=== PATIENT | male | born 1980 | race Caucasian/White ===

== ENCOUNTER 2025-10-19 17:26 | Inpatient (IN) | payer BC ==
[~2025-10-19] VITALS: Ht 180.3 cm; Wt 103.6 kg
[2025-10-19] MEDS: fentaNYL/PF 50MCG/1 ML 2ML syringe ONE (17:39)
[2025-10-19] MEDS: fentaNYL/PF 50MCG/1 ML 2ML syringe IV ONE (17:39)
--- NOTE | 2025-10-19 18:23 | ELECTROCARDIOGRAPH REPORT ---
[facility] Test Date: 2025-10-19 Test Time: 18:21:13 Pat Name: DEANNA FOX Department: [facility]- Patient ID: [id number] Room: Gender: M Customer Supply Coordinator: : 1980 Requested By: YISSEL SIMON Order Number: [id number] Reading MD: Dr. Yissel Simon Measurements Intervals [place] Rate: 81 P: 0 GA: 0 QRS: 90 QRSD: 113 T: 63 QT: 400 QTc: 465 Interpretive Statements Atrial flutter/fibrillation Borderline intraventricular conduction delay Electronically Signed On 10-19-2025 19:19:[address] Yissel Simon Please click the below link to view image of tracing.
[2025-10-19] MEDS: normal saline 1000ml 1,000 ML IV ONE (18:37)
[2025-10-19 18:41] LABS: MEAN PLATELET VOLUME 7.9 FL (7.4-10.4); RED CELL DISTRIBUTION WIDTH 14.6 % (11.5-14.5)
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
[2025-10-19] MEDS: etomidate 2mg/ml inj. IV ONE (18:44)
[2025-10-19 18:49] LABS: CREATININE 1.10 MG/DL (0.60-1.10); TOTAL CARBON DIOXIDE 27.6 MMOL/L (24-32); eCRCL 90 ML/MIN; eGFR 72 ML/MIN
[2025-10-19 18:52] LABS: APTT 22 SECONDS (22-32); INR 1.0 INR
--- NOTE | 2025-10-19 19:24 | RADIOLOGY REPORT ---
EXAM: DI KNEE LIMITED (AP/LAT), DI TIB/FIB 2 VWS REASON FOR EXAM: KNEE PAIN TECHNIQUE: AP and lateral views of the right knee and right tibia and fibula are submitted for review. COMPARISON: None FINDINGS: There is no significant knee effusion. The knee joint spaces are maintained. The AP view of the lower portion of the right tibia and fibula is suboptimal due to patient pain impairing positioning. There is acute fracture of the posterior malleolus of the tibia. There is posterior and lateral dislocation of the talus with respect to the tibial plafond. There is acute oblique fracture through the distal fibular diaphysis. There is severe soft tissue swelling about the ankle. IMPRESSION: Acute fractures of the posterior malleolus of the tibia and the distal fibular diaphysis. Posterolateral dislocation of the talus with respect of the tibial plafond. Severe soft tissue swelling about the ankle.
--- NOTE | 2025-10-19 19:26 | RADIOLOGY REPORT ---
EXAM: DI FOOT, COMPLETE (3VW MIN) REASON FOR EXAM: FOOT PAIN TECHNIQUE: AP, lateral, and oblique views of the right foot are submitted for review. COMPARISON: None FINDINGS: There is acute fracture of the posterior malleolus of the distal tibia. There is oblique acute fracture of the distal fibular diaphysis. There is posterolateral dislocation of the talus with respect to the tibial plafond. There is severe soft tissue swelling about the ankle IMPRESSION: Acute fractures of the posterior malleolus of the tibia and the distal fibular diaphysis. Posterolateral dislocation of the talus with respect to the tibial plafond. Severe soft tissue swelling.
--- NOTE | 2025-10-19 19:41 | RADIOLOGY REPORT ---
CHEST RADIOGRAPH Indication: trauma Technique: Single frontal view of the chest was obtained Comparison: None FINDINGS: Lines and Tubes: None Lungs: No focal consolidation. Eventration of bilateral hemidiaphragm. Pleura: No effusion. No pneumothorax. Cardiomediastinal contours: Unremarkable Bones: No acute osseous abnormality. IMPRESSION: No acute cardiopulmonary disease.
--- NOTE | 2025-10-19 19:43 | RADIOLOGY REPORT ---
EXAM: DI ANKLE,LIMITED (AP/LAT) REASON FOR EXAM: post reduction TECHNIQUE: AP and lateral views of the right ankle are submitted for review. COMPARISON: DI KNEE LIMITED (AP/LAT) on DOS: 10/19/25 FINDINGS: Fine bony and soft tissue details are obscured by overlying splint material. There is acute fracture of the posterior malleolus of the distal tibia. There has been interval reduction of the talar dome with respect to the tibial plafond. There is acute oblique fracture through the distal fibular diaphysis. There is mild residual widening of the ankle mortise medially. IMPRESSION: Interval reduction of the talar dome with respect to the tibial plafond. Mild residual medial ankle mortise widening. Acute fractures of the posterior malleolus of the tibia and oblique distal fibular diaphysis.
[2025-10-19] MEDS: ondansetron/PF 4mg/2ml inj IV ONE (20:35)
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
[2025-10-19] MEDS ORDERED: potassium Cl 20 mEq SR tablet PO PRN ×2 (20:45)
[2025-10-19] MEDS ORDERED: magnesium hydroxide 30ml (MOM) UD suspension PO PRN (20:45)
[2025-10-19] MEDS ORDERED: ondansetron/PF 4mg/2ml inj IV PRN (20:45)
[2025-10-19] MEDS ORDERED: magnesium sulf-water 2g/50mL 50 ML IV PRN (20:45)
[2025-10-19] MEDS ORDERED: HYDROcodone/acetaminophen 5mg/325mg tablet PO PRN (20:45)
[2025-10-19] MEDS ORDERED: potassium Cl 40MEQ/1/2NS 520ml 520 ML IV PRN (20:45)
[2025-10-19] MEDS ORDERED: mag hydrox/Alum hydrox/simeth 30ml oral suspension PO PRN (20:45)
[2025-10-19] MEDS ORDERED: magnesium Cl slow-release 64mg tablet PO PRN (20:45)
[2025-10-19] MEDS ORDERED: magnesium sulf-water 4G/100mL 100 ML IV PRN (20:45)
--- NOTE | 2025-10-19 20:51 | RADIOLOGY REPORT ---
INDICATION: trauma RT ankle fx COMPARISON: DI ANKLE,LIMITED (AP/LAT) on DOS: 10/19/25, DI FOOT, COMPLETE (3VW MIN) on DOS: 10/19/25, DI KNEE LIMITED (AP/LAT) on DOS: 10/19/25, DI TIB/FIB 2 VWS on DOS: 10/19/25 TECHNIQUE: CT of the right ankle was performed without contrast. Volume transverse images were obtained and reconstructed in multiple planes using bone and soft tissue algorithms. Radiation Dose Information: CT Dose: CTDI volume is 14.36 mGy. Dose-length product is 422.35 mGy*cm FINDINGS: Mildly comminuted minimally displaced oblique posterior malleolar fracture. Additional minimally displaced oblique distal fibular metaphyseal fracture of the level of the syndesmosis. Talar dome appears marginally laterally subluxed with respect to the distal tibia. IMPRESSION: Lateral and posterior malleolar fractures. All CT scans at this medical facility are performed using dose modulation techniques as appropriate to a performed exam including the following: Automated exposure control was utilized; adjustment of the MA and/or KV according to patient size; and use of iterative reconstruction technique.
[2025-10-19] MEDS: normal saline 1000ml 1,000 ML IV SCH (22:16)
[2025-10-19] MEDS ORDERED: TADA10TA14 PO (22:24)
[2025-10-19 22:45] VITALS: BP 130/79; PULSE 63; RESP 18; TEMP 98.9; O2SAT 100
[2025-10-19] MEDS: HYDROcodone/acetaminophen 10/325mg tab PO PRN (23:04)
[2025-10-20] VITALS (18 sets, daily range): BP systolic 95–118; BP diastolic 36–74; PULSE 68–95; RESP 14–25; TEMP 96.9–98.7; O2SAT 87–98
[2025-10-20 05:59] LABS: MEAN PLATELET VOLUME 8.4 FL (7.4-10.4); RED CELL DISTRIBUTION WIDTH 14.8 % (11.5-14.5)
[2025-10-20 06:10] LABS: CHOL/HDL RATIO 5.5 (0.00-4.99); CREATININE 0.87 MG/DL (0.60-1.10); LDL CHOLESTEROL 137 MG/DL (50-100); TOTAL CARBON DIOXIDE 26.9 MMOL/L (24-32); eCRCL 114 ML/MIN; eGFR > 90 ML/MIN
[2025-10-20] MEDS: K and/or MAG REPLACEMENT MC SCH (07:06)
[2025-10-20] MEDS: heparin, porcine 5000 units/ml vial SQ SCH (08:00)
[2025-10-20] MEDS: docusate sod 100mg capsule PO SCH (08:00)
[2025-10-20] MEDS ORDERED: enalaprilat 1.25mg/ml 2ml vial IV PRN ×2 (10:40→14:40)
[2025-10-20] MEDS ORDERED: ringers solution, lacted 1,000 ML IV SCH ×2 (10:40→14:40)
[2025-10-20] MEDS ORDERED: morphine 4 MG/ML inj SYRINge IV PRN ×4 (10:40→14:40)
[2025-10-20] MEDS ORDERED: HYDROmorphone inj. 0.5 MG/0.5 ML DISP.SYRIN IV PRN ×4 (10:40→14:40)
[2025-10-20] MEDS ORDERED: labetalol 20mg/4ml (5mg/ml) syringe IV PRN ×2 (10:40→14:40)
[2025-10-20] MEDS ORDERED: fentaNYL/PF 50MCG/1 ML 2ML syringe IV PRN ×4 (10:40→14:40)
[2025-10-20] MEDS ORDERED: ondansetron/PF 4mg/2ml inj IV PRN ×2 (10:40→14:40)
[2025-10-20] MEDS: vancomycin/NS 1 GM ADD-VANTAGE 250 ML IV ONE (13:14)
[2025-10-20] MEDS: ceFAZolin/D5W- 1GM premix 50 ML IV ONE (13:25)
[2025-10-20] MEDS ORDERED: fentaNYL /PF 50mcg/ml 5ml ampule ONE (13:29)
[2025-10-20] MEDS ORDERED: midazolam 1 mg/ML 2ml injection ONE (13:29)
[2025-10-20] MEDS ORDERED: propofol inj 20 ML IV ONE (13:30)
[2025-10-20] MEDS ORDERED: LIDOcaine 1%/PF 5ML 10 MG/ML VIAL ONE (13:30)
[2025-10-20] MEDS ORDERED: cloNIDine hcl/PF 100mcg/ml inj ONE (13:34)
[2025-10-20] MEDS ORDERED: ROPIVAcaine 0.5% (5mg/ml) 30ml vial ONE (13:56)
[2025-10-20] MEDS ORDERED: BUPIVAcaine/PF 7.5mg/ml (0.75%) 10ml vial ONE (13:57)
[2025-10-20] MEDS ORDERED: dexamethasone sod phosphate 4mg/ml inj. ONE (14:03)
--- NOTE | 2025-10-20 14:41 | ANESTHESIA RECORDS ---
Nerve Block Providers to CC ~ Diagnosis: Nerve Block requested by: HERMINIA GAUTAM MD Neuraxial/Peripheral Nerve Block requested for Post-operative analgesia by Physician above DIAGNOSIS: Post-operative pain. (Body Area) Shoulder: [ ] Arm: [ ] Hand: [ ] Hip: [ ] Knee: [ ] Ankle: [ Right ] Foot: [ ] Leg: [ ] Abdomen: [ ] Other: [ ] Post-operative pain expected to be/is inadequately managed by oral or IV medicines. Regional anesthetic expected to facilitate rehabilitation and/or discharge from facility. Other:[ ] Procedure Performed: Femoral / Saphenous: Right Popliteal Posterior: Right Time out Done?: Yes Time of Time out: 13:40 Procedure Details: PROCEDURE DETAILS: Risks, benefits and alternatives explained Informed consent obtained, and patient wishes to proceed Conscious sedation with indicated monitors Patient positioned, pertinent anatomy defined, sterile technique used Needle used: [ ] 3 1/8 inch Stimuplex Ultra 22ga [x ] 4 inch Stimuplex Ultra 20ga [ ] 6 inch Stimuplex Ultra 20ga [ ] 6 inch, Quikbloc over the needle catheter set 20ga [ ] 4 inch Quikbloc over the needle catheter set 20ga [ ]Other: [ ] Loss of twitch @ [____0.5 _]mA [x ] Single Injection [ ] Catheter Ultrasound Guidance Used: [x ] Yes [ ] No Attempts:[ once ] Medicines injected: [ x ]Clonidine Amt:[ 80 mcgs ] [x ]Dexamethasone Amt:[___4 mgs ] [x ]Ropivacaine Amt:[__0.5% 30 cc ] [x ]Bupivacaine Amt:[____0.375% 16 cc ] [ ]Lidocaine Amt:[ ] [ ]Exparel 1.33%:[ ] [ ]Epinephrine Amt[ ] [ ]Other: [ ] Intermittent aspiration during local anesthetic administration No symptoms of intraneural or intravenous injection Patient tolerated procedure well Comments Right Popliteal fossa Block Pt in supine position with rightLeg flexed at 90 Degrees. Posterior approach. Ultrasound probe placed back of thigh 2 inches above the knee joint. Easy visualization of the Sciatic nerve. 1% xylocaine local anesthetic. Easy visualization of Spreading of local anesthetic anterior and posterior to the Sciatic nerve sub paraneurally inside sciatic nerve sheath. Meaningful conversation t throughout. No Pain or discomfort during injection. Rt Adductor Canal blk Procedure done before surgery under General anesthesia. Pt supine with Rt leg rotated to Rt slightly. Easy visualization of Adductor Canal with ultra sound anterolateral to Femoral artery at the junction of upper and middle third of thigh. Able to see the tip of the needle and injected local anesthetic with the ultrasound. ALISSON HOLCOMB MD Oct 20, 2025 14:41
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
[2025-10-20] MEDS ORDERED: acetaminophen 1,000mg/100ml IV 100 ML IV ONE (15:56)
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
--- NOTE | 2025-10-20 16:27 | OPERATIVE REPORT ---
Operative Report Providers to ~ Date of Procedure: Oct 20, 2025 Pre-Operative Diagnosis: Ankle Fracture Post-Operative Diagnosis SAME as PRE-Op trimalleolar ankle fracture dislocation Procedure Performed Open reduction internal fixation with syndesmotic screw stabilization right ankle fixation involving the lateral and medial malleolus Surgeon: Sonny Gautam MD Hand Drawer In Helper None Anesthesiologist: Azam Pearl Type of Anesthesia: General, Other (Popliteal nerve block) Findings: This patient was found to have a trimalleolar ankle fracture dislocation space. closed reduction revealed a complete reduction of the talus within the ankle mortise anatomic positioning of the medial malleolus and lateral malleolus. Posterior malleolus also reduced anatomically. Complications None Prosthetics\Implants used: Four hole fibular plate right with 3.5 and 2.5 locking screws 13.5 syndesmotic screw 60 mm long. Wound cannulated 3.5 x 20 mm interfragmentary screw and two medial malleolar screws 145 mm in the other 34 mm long cannulated 3.5 mm diameter Estimated Blood Loss: 100 cc Specimen Removed: None Description of Procedure: Patient was taken to the operating room on an urgent basis to be able to perform the surgery and minimize progressive swelling that could potentially compromised functional outcome. Once in the operating room and he was given prophylactic intravenous antibiotics and a general anesthetic being placed in the table in the supine position the right leg was prepped and draped in usual sterile orthopaedic fashion after tourniquet that was well padded was placed in the upper thigh. The left leg was placed in an SCD device surgical time-out was taken per protocol and the case was begun. Esmarch was used for exsanguination tourniquet was insufflated. The hip bolster was placed underneath the right hip to allow for internal rotation to his right leg incision was made from the right lateral malleolus from the tip of the fibula proximally some 6-8 inches dissection was then carried down to the fibula which was then exposing the fibula at the fracture level both proximally to the tip of the lateral malleolus and then proximally the fracture was easily reduced with a clamp reduction clamp and then stabilize with the interfragmentary screw anterior to posterior proximal to distal a neutralization lateral plate was placed to stabilize the fibula and then under fluoroscopic guidance the transverse syndesmotic screw was then placed closing the ankle mortise to less than 4 mm medially under ankle mortise view. C-arm fluoroscopy and clinical exam confirmed anatomic reduction of the syndesmotic space stabilization of the talus in the mortise. The syndesmotic screw was a compression screw the balance of the other screws were locking screws except for the inter fragmentary screw which was a cannulated screw with nonlocking copious antibiotic irrigation was used after C-arm fluoroscopy confirmed anatomic reduction of the lateral malleolus and syndesmosis. The medial malleolus was now evaluated found to be anatomically reduced and multiple views by C-arm fluoroscopy. Transverse incision at the tip of the medial malleolus was accomplished this measured approximately 2-1/2 inches dissection was then carried down to the tip of the medial malleolus and two guide pins were placed under fluoroscopic guidance into the metaphyseal region through the medial malleolus avoiding the ankle joint a 45 mm cannulated screws placed over the guide pin anteriorly anterior physician pin was fixated this way. Posterior positioned guide pin was used and 45 34 mm long medial malleolar screw was used for the 2nd pin to control rotation. Positioning was as confirmed on C-arm fluoroscopy in multiple views copious antibiotic irrigation was used prior to closure of both these incisions 2-0 Vicryl was used subcuticularly and then skin fani was used for the skin. Silk tape was used I all incision sites island dressings were applied sterile dressing 4x4s were applied these were held in position with sterile soft roll and a short-leg [place] posterior splint with lateral rubs were applied to keep the ankle in the neutral position the tourniquet had been released good distal pulses had been, returned and hemostasis was achieved with the electrocautery. Patient was extubated and taken to the recovery room in stable condition there were no apparent perioperative complications Counts repoted as correct: Yes SONNY GAUTAM MD Oct 20, 2025 16:27
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
[2025-10-21] MEDS: ceFAZolin/D5W- 1GM premix 50 ML IV SCH (00:11)
[2025-10-21 02:00] VITALS: BP 109/56; PULSE 49; RESP 16; TEMP 96.2; O2SAT 99
[2025-10-21 06:00] VITALS: BP 110/58; PULSE 58; RESP 16; TEMP 97.9; O2SAT 96
[2025-10-21 06:11] LABS: MEAN PLATELET VOLUME 8.9 FL (7.4-10.4); RED CELL DISTRIBUTION WIDTH 14.8 % (11.5-14.5)
[2025-10-21 06:23] LABS: CREATININE 0.85 MG/DL (0.60-1.10); TOTAL CARBON DIOXIDE 25.6 MMOL/L (24-32); eCRCL 117 ML/MIN; eGFR > 90 ML/MIN
[2025-10-21 08:00] VITALS: RESP 16; O2SAT 98
[2025-10-21] MEDS: vancomycin/NS 1 GM ADD-VANTAGE 250 ML IV SCH (09:35)
[2025-10-21 10:00] VITALS: BP 102/52; PULSE 69; RESP 16; TEMP 98.2; O2SAT 96
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
[2025-10-21] MEDS ORDERED: CEPH-585 PO (16:57)
== END 2025-10-21 18:25 | disposition home or self-care (01) | DRG 494 ==
LOC: ER 17:27 → ED HOLD 20:18 → ORTHO 4S 22:45
PROVIDERS: ADMIT Internal Medicine; ATTEND Internal Medicine
PROC: 0QSG04Z Reposition Right Tibia with Internal Fixation Device, Open Approach (ICD-10-PCS; 2025-10-20)
PROC: 0QSJ04Z Reposition Right Fibula with Internal Fixation Device, Open Approach (ICD-10-PCS; principal; 2025-10-20 13:24)
DX: S82.851A Displaced trimalleolar fracture of right lower leg, initial encounter for closed fracture (principal); D72.829 Elevated white blood cell count, unspecified; W18.39XA Other fall on same level, initial encounter; Y93.89 Activity, other specified; Y92.89 Other specified places as the place of occurrence of the external cause; Y99.8 Other external cause status
CPT/HCPCS: 36415; 71045; 73560; 73590; 73600; 73630; 73700; 76000; 80048; 80053; 80061; 82948; 83036; 83735; 84145; 85025; 85610; 85730; 87081; 93005; 97116; 97161; 99285; A4618; A6258; A6449; A7000; C1713; G0378; J0131; J0690; J0735; J1100; J1171; J1644; J2250; J2270; J2405; J2704; J2795; J3010; J3373; J3490; J7030; J7120